=== PATIENT | male | born 1955 | race Caucasian/White ===

== ENCOUNTER 2023-12-27 13:46 | Observation (INO) | payer MEDICARE, OTHER ==
[~2023-12-27] VITALS: Ht 182.9 cm; Wt 83.9 kg
[2023-12-27 13:55] VITALS: BP 92/66; PULSE 85; RESP 18; TEMP 97.1; O2SAT 98
[2023-12-27 18:05] LABS: BASOPHILS % (AUTO) 0.1 % (0.0-2.0); EOSINOPHILS # (AUTO) 0.1 K/uL (0-0.4); EOSINOPHILS % (AUTO) 0.6 % (0.0-4.0); HEMATOCRIT 46.7 % (36-52); HEMOGLOBIN 16.1 g/dL (12.0-18.0); LYMPHOCYTES # (AUTO) 0.8 K/uL (2.0-11.5); LYMPHOCYTES % (AUTO) 7.4 % (20.5-51.1); MEAN CORPUSCULAR HEMOGLOBIN 32 pg (27-31); MEAN CORPUSCULAR HGB CONC 34 g/dL (33-37); MEAN CORPUSCULAR VOLUME 94.1 fL (80-94); MONOCYTES # (AUTO) 0.9 K/uL (0.8-1.0); MONOCYTES % (AUTO) 8.1 % (1.7-9.3); NEUTROPHILS # (AUTO) 8.9 K/uL (1.8-7.7); NEUTROPHILS % (AUTO) 83.8 % (42.2-75.2); PLATELET COUNT (AUTO) 250 K/uL (140-450); RED BLOOD CELL COUNT(AUTO) 4.97 MIL/uL (4.20-6.10); WHITE BLOOD COUNT (AUTO) 10.6 K/uL (4.8-10.8)
[2023-12-27 18:19] LABS: ANION GAP 15.2 (8-16); CALCIUM 9.5 mg/dL (8.5-10.1); CARBON DIOXIDE 24.5 mmol/L (21-32); POTASSIUM 3.7 mmol/L (3.5-5.1)
[2023-12-27 18:32] LABS: INR 0.97 (0.8-1.2); PARTIAL THROMBOPLASTIN TIME 31.2 secs (22-35.6); PROTHROMBIN TIME 10.2 secs (10.8-13.4)
[2023-12-27] MEDS: MECLIZINE 25 MG TAB PO ONE (19:01)
[2023-12-27] MEDS: NACL 0.9% 1,000 ML IV ONE (19:01)
[2023-12-27 19:53] VITALS: O2SAT 99
[2023-12-27] MEDS ORDERED: ONDANSETRON 4 MG/2 ML VIAL IVP PRN (21:10)
[2023-12-27] MEDS ORDERED: MORPHINE SULFATE 2 MG/ML SYR IVP PRN (21:10)
[2023-12-27] MEDS ORDERED: KCL 20 MEQ IN 100 mL PREMIX 200 ML IV PRN (21:10)
[2023-12-27] MEDS ORDERED: HYDROcodone/APAP 5/325 MG 1 TAB TAB PO PRN (21:10)
[2023-12-27] MEDS ORDERED: ACETAMINOPHEN 325 MG TAB PO PRN (21:10)
[2023-12-27] MEDS ORDERED: MAG SULF 2000 MG/WATER PREMIX 50 ML IV PRN (21:10)
[2023-12-27] MEDS ORDERED: POTASSIUM CHLORIDE 10 MEQ TABER PO PRN (21:10)
[2023-12-27] MEDS: NACL 0.9% 1,000 ML IV SCH (21:10)
[2023-12-27] MEDS ORDERED: MAGNESIUM OXIDE 400 MG TAB PO PRN (21:10)
[2023-12-27 23:08] VITALS: O2SAT 94
[2023-12-28 00:39] LABS: APPEARANCE,URINE CLEAR (CLEAR); BILIRUBIN,URINE NEGATIVE (NEGATIVE); BLOOD, URINE NEGATIVE (NEGATIVE); COLOR,URINE YELLOW (YELLOW); LEUKOCYTE ESTERASE ,URINE NEGATIVE (NEGATIVE); NITRITE, URINE NEGATIVE (NEGATIVE); PROTEIN,URINE NEGATIVE (NEGATIVE); UGLUCOSE NEGATIVE (NEGATIVE); UROBILINOGEN,URINE 0.2 EU/dL (0.2 - 1)
[2023-12-28] MEDS: diphenhydrAMINE 50 MG CAP PO ONE (01:11)
[2023-12-28 01:15] VITALS: O2SAT 94
[2023-12-28 04:22] VITALS: O2SAT 96
[2023-12-28] MEDS ORDERED: HYDR-2853 PO (06:21)
[2023-12-28 07:27] LABS: HEMATOCRIT 43.6 % (36-52); HEMOGLOBIN 14.8 g/dL (12.0-18.0); MEAN CORPUSCULAR HEMOGLOBIN 32 pg (27-31); MEAN CORPUSCULAR HGB CONC 34 g/dL (33-37); RED BLOOD CELL COUNT(AUTO) 4.64 MIL/uL (4.20-6.10); WHITE BLOOD COUNT (AUTO) 5.4 K/uL (4.8-10.8)
[2023-12-28 07:28] LABS: BASOPHILS % (AUTO) 0.4 % (0.0-2.0); EOSINOPHILS # (AUTO) 0.1 K/uL (0-0.4); EOSINOPHILS % (AUTO) 2.1 % (0.0-4.0); LYMPHOCYTES # (AUTO) 0.9 K/uL (2.0-11.5); LYMPHOCYTES % (AUTO) 16.7 % (20.5-51.1); MONOCYTES # (AUTO) 0.6 K/uL (0.8-1.0); MONOCYTES % (AUTO) 10.6 % (1.7-9.3); NEUTROPHILS # (AUTO) 3.8 K/uL (1.8-7.7); NEUTROPHILS % (AUTO) 70.2 % (42.2-75.2); PLATELET COUNT (AUTO) 216 K/uL (140-450)
[2023-12-28 08:40] LABS: ANION GAP 15.1 (8-16); CALCIUM 8.8 mg/dL (8.5-10.1); CARBON DIOXIDE 24.9 mmol/L (21-32)
[2023-12-28 08:41] LABS: ALBUMIN 3.8 g/dL (3.4-5.0); CREATININE 1.7 mg/dL (0.6-1.3); TOTAL BILIRUBIN 0.5 mg/dL (0.0-1.0); TOTAL PROTEIN, SERUM 7.3 g/dL (6.4-8.2)
[2023-12-28 10:24] VITALS: PULSE 75; RESP 75; O2SAT 99
[2023-12-28 12:00] VITALS: BP 131/73; PULSE 67; PULSE 71; RESP 18; TEMP 98.6
[2023-12-28 14:48] VITALS: BP 131/73; PULSE 67; RESP 18; TEMP 98.6
== END 2023-12-28 16:24 | disposition home or self-care (01) ==
LOC: MED 13:46 → MTU 21:09
PROVIDERS: ADMIT Hospitalist; ATTEND Hospitalist
DX: E86.0 Dehydration (principal); N17.9 Acute kidney failure, unspecified; N20.0 Calculus of kidney; I10 Essential (primary) hypertension; R42 Dizziness and giddiness; Z79.899 Other long term (current) drug therapy
CPT/HCPCS: 36415; 70450; 71045; 76770; 80048; 80053; 81003; 83735; 83880; 84484; 85025; 85610; 85730; 87081; 93005; 96360; 96361; 96372; 99285; G0378; J1644; J8597; Q0092; Q0163

== ENCOUNTER 2024-03-19 10:11 | Emergency (ER) | payer MEDICARE, OTHER ==
[~2024-03-19] VITALS: Ht 182.9 cm; Wt 80.5 kg
[~2024-03-19 10:11] MED LIST: HYDR-2853 PO
[2024-03-19 10:18] VITALS: BP 151/79; PULSE 64; RESP 18; TEMP 97.6; O2SAT 98
[2024-03-19] MEDS: NACL 0.9% 1,000 ML IV ONE (10:50)
[2024-03-19 10:55] VITALS: BP 136/81; PULSE 58; RESP 18; TEMP 97.6
[2024-03-19 10:56] VITALS: O2SAT 98
[2024-03-19] MEDS: ONDANSETRON 4 MG/2 ML VIAL IVP ONE (11:00)
[2024-03-19 11:02] LABS: BASOPHILS % (AUTO) 0.5 % (0.0-2.0); EOSINOPHILS # (AUTO) 0.2 K/uL (0-0.4); EOSINOPHILS % (AUTO) 3.2 % (0.0-4.0); HEMATOCRIT 37.3 % (36-52); HEMOGLOBIN 12.6 g/dL (12.0-18.0); LYMPHOCYTES # (AUTO) 0.7 K/uL (2.0-11.5); LYMPHOCYTES % (AUTO) 10.5 % (20.5-51.1); MEAN CORPUSCULAR HEMOGLOBIN 32 pg (27-31); MEAN CORPUSCULAR HGB CONC 34 g/dL (33-37); MEAN CORPUSCULAR VOLUME 93.4 fL (80-94); MONOCYTES # (AUTO) 0.6 K/uL (0.8-1.0); MONOCYTES % (AUTO) 8.6 % (1.7-9.3); NEUTROPHILS % (AUTO) 77.2 % (42.2-75.2); PLATELET COUNT (AUTO) 208 K/uL (140-450); RED BLOOD CELL COUNT(AUTO) 3.99 MIL/uL (4.20-6.10); RED CELL DISTRIBUTION WIDTH 12.8 % (11.6-13.7); WHITE BLOOD COUNT (AUTO) 6.5 K/uL (4.8-10.8)
[2024-03-19 11:11] LABS: ANION GAP 15.6 (8-16); CALCIUM 9.2 mg/dL (8.5-10.1); CARBON DIOXIDE 23.6 mmol/L (21-32); CREATININE 1.7 mg/dL (0.6-1.3); POTASSIUM 4.2 mmol/L (3.5-5.1)
[2024-03-19] MEDS ORDERED: ONDA8TAB87 PO (11:31)
== END 2024-03-19 11:48 | disposition home or self-care (01) ==
LOC: MED 10:11
DX: R42 Dizziness and giddiness (principal); R11.0 Nausea
CPT/HCPCS: 36415; 80048; 85025; 96361; 96374; 99283; J2405; J7030